=== PATIENT | male | born 1965 | race Caucasian/White ===

== ENCOUNTER 2018-04-16 06:02 | Day surgery (SDC) | payer OTHER ==
[2018-04-15 11:13] VITALS: BMI 30.4
[2018-04-16] MEDS ORDERED: Lidocaine 1% (PF) 30 ML VIAL ONE (06:47)
[2018-04-16] MEDS ORDERED: Heparin 10,000 UNITS/1 ML VIAL ONE (06:47)
[2018-04-16 07:10] LABS: #Basophils 0.1 thou/uL (0.0-0.2); #Eosinphils 0.2 thou/uL (0.0-0.7); #Lymphocytes 1.3 thou/uL (1.20-3.40); #Monocytes 0.6 thou/uL (0.11-0.59); #Neutrophils 3.6 thou/uL (1.40-6.50); %Eosinophils 4.1 % (0.0-10.0); %Monocytes 9.9 % (0.0-10.0); %Neutrophils 61.9 % (42.0-75.0); Hemoglobin 15.8 g/dL (14.0-18.0); Mean Corpuscular HGB CONC 34.9 g/dL (32.0-36.0); Mean Corpuscular Volume 91.6 fL (78.0-98.0); Mean Platelet Volume 6.7 fL (7.4-10.4); Platelet Count 205 thou/uL (130-400); RBC Distribution Width 11.9 % (11.5-14.5); Red Blood Cell (RBC) Count 4.93 mill/uL (4.70-6.10); White Blood Cell (WBC) Count 5.8 thou/uL (4.8-10.8)
[2018-04-16 07:16] LABS: PTT 29.8 SEC (22.9-36.1); Prothrombin Time 13.6 SEC (12.0-14.7)
[2018-04-16 07:30] LABS: Anion Gap 9 mmol/L (10-20); BUN (Urea Nitrogen) 16 mg/dL (8.9-20.6); Calc. Creatinine Clearance 128 mL/min (70-130); Calcium 9.4 mg/dL (7.8-10.44); Carbon Dioxide 28 mmol/L (22-29); Chloride 105 mmol/L (98-107); Estimated GFR-MDRD 70; Glucose 103 mg/dL (70-105); Potassium 3.9 mmol/L (3.5-5.1); Sodium 138 mmol/L (136-145)
[2018-04-16] MEDS ORDERED: Propofol 500 MG/50 ML VIAL ONE ×4 (08:35→09:55)
[2018-04-16] MEDS ORDERED: Midazolam HCl 2 mg/2 ml Vial ONE (09:10)
[2018-04-16] MEDS ORDERED: Phenylephrine HCL 10 MG/ML VIAL ONE (09:12)
[2018-04-16] MEDS ORDERED: PHENYLEPHRINE-NS 100 MCG/ML 10 ML SYRINGE ONE (09:34)
[2018-04-16] MEDS ORDERED: Fentanyl 100 MCG/2 ML VIAL ONE (09:39)
[2018-04-16] MEDS ORDERED: Isoproterenol 0.2 MG/1 ML AMP ONE (09:52)
--- NOTE | 2018-04-16 12:01 | OP ---
PROCEDURE PERFORMED: SVT ablation. PREOPERATIVE DIAGNOSIS: Supraventricular tachycardia. PROCEDURE IN DETAIL: The patient came to the EP lab in the postabsorptive state. Informed consent w as obtained. A timeout was called. The patient was sedated by member of the Anesthesia staff. Once the patient was adequately sedated, the left and right femoral regions were prepped and draped in us ual sterile fashion. Using a modified Seldinger technique and with ultrasound-guided access, access was obtained x2 in the right femoral vein and x2 in the left femoral vein. Two 8 [place] sheaths were placed in the right femoral vein and two 6 [place] sheaths were placed in the right femoral vein. A Decapolar catheter was advanced from the right femoral vein and placed into the coronary sinus for le ft atrial pacing and recording. A quadripolar catheter was advanced and placed in the right atrium, octapolar catheter was advanced into His bundle region and a quadripolar catheter was placed into the RV for pacing and recording. Baseline intervals are as follows, [place] interval 151, QRS 89, QT 331, RR 600 milliseconds. 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 VA conduction was concentric and decremental. VERP occurred at 400 milliseconds at 190 premature, VA ERP occurred less than 400 at 190, AH interval was 80, HV interval was 46. AV node ERP was 500 with 220 milliseconds premature. AV node reentrant tachycardia was induced with ventricular pacing as well as atrial pacin g. Based on this, the atrial lead was removed. The atrial quadripolar catheter was removed and subs tituted with an 8 [place] [employer] Carto 4 mm tip catheter. A 3 dimensional electroanatomical mapping geometry was made and a was made. Radiofrequency ablation was delivered in the region of the slow pathway with good junctional, but occasional acceleration, which required discontinuation of RF delivery. Ultimately, RF delivery resulted in very nice junctional beats and no further inducible ta chycardia, on and off isoproterenol. Final numbers were similar to the original numbers with HV and AH interval essentially identical. The patient was therefore woken from anesthetic. Hemostasis was obtained by placement of a plugs. The patient tolerated the procedure well and was discharged in EP lab in stable condition. PROCEDURE PERFORMED: EP SVT ablation, 3D electroanatomical mapping, drug infusion and CSLA recording . CONCLUSIONS: 1. Normal AV intervals. 2. Easily inducible AV node reentrant tachycardia. 3. Successful ablation for AV node reentrant tachycardia. POSTOPERATIVE DIAGNOSIS: SVT. COMPLICATIONS: None acute. ESTIMATED BLOOD LOSS: Less than 30 mL. RECOMMENDATIONS: The patient will be bed rest for 2 hours, and will be discharged later today. We w ill follow up with Dr. Vuong.
[2018-04-16] MEDS ORDERED: Succinylcholine Chloride 20 MG/ML 10 ml SYRINGE FS ONE (14:46)
[2018-04-16] MEDS ORDERED: PROPOFOL 200 MG/20 ML VIAL ONE (14:46)
--- NOTE | 2018-04-18 10:33 | EKG ---
Test Reason : PREOP Blood Pressure : / mmHG Vent. Rate : 086 BPM Atrial Rate : 086 BPM P-R Int : 170 ms QRS Dur : 092 ms QT Int : 354 ms P-R-T Axes : 023 069 024 degrees QTc Int : 423 ms Normal sinus rhythm Normal ECG No previous ECGs available Confirmed by DR. Clint QUEVEDO ([id number]) on 04/18/2018 10:33:15 AM Referred By: JAIME Confirmed By:DR. Clint QUEVEDO
== END 2018-04-16 14:15 | disposition home or self-care (01) ==
LOC: CCL 06:02
PROVIDERS: ATTEND Specialist
PROC: 02583ZZ Destruction of Conduction Mechanism, Percutaneous Approach (ICD-10-PCS; principal; 2018-04-16)
PROC: 02K83ZZ Map Conduction Mechanism, Percutaneous Approach (ICD-10-PCS; principal; 2018-04-16)
DX: I47.1 Supraventricular tachycardia (principal); I42.9 Cardiomyopathy, unspecified; Z79.899 Other long term (current) drug therapy
CPT/HCPCS: 36415; 76942; 80048; 85025; 85610; 85730; 93005; 93010; 93613; 93620; 93623; 93653; C1730; C1769; J1644; J2001; J2250; J2370; J2704; J3010